=== PATIENT | female | born 1955 | race Caucasian/White ===

== ENCOUNTER → 2020-05-22 | Outpatient (CLI) | payer BC ==
[2014-09-30 14:13] VITALS: BP 156/84
[~2020-05-22] MED LIST: AMLO5TAB10 PO; ARIP2TAB3 PO; CLON0.2T PO; CLONAZEPAM1 MG PO; DEXT20TA2 PO; EZET10TA20 PO; FLUT9.9S NS; OMEP40CA45 PO
--- NOTE | 2020-05-22 17:06 | RAD ---
EXAM: PET/CT SKULL BASE TO MID THIGH. HISTORY: Follicular lymphoma COMPARISON: None. TECHNIQUE: CT was performed from the skull base through the mid thighs for the purposes of attenuation correction. 15.3 mCi F-18 fluorodeoxyglucose (FDG) was administered intravenously. After an uptake period, positron emission tomography was performed from the skull base through the mid thighs. The PET and CT data were fused and interpreted in combination a dedicated workstation. Blood glucose level was 92 mg/dL at the time of FDG administration. FINDINGS: There are no hypermetabolic or enlarged lymph nodes throughout the body. No abnormal uptake is identified throughout. The spleen is not enlarged. A 9 mm nodule in the left lower lobe demonstrates no detectable uptake, favoring benignity. Additional CT findings include aortic valve calcifications. A benign cyst in the right hepatic lobe measures 2 cm. The uterus is surgically absent. There is mild to moderate centrilobular emphysema in the apices. Few calcified granulomas are noted. An uncalcified nodule in the right lower lobe on image 99 measures 5 mm. There is an air-fluid level in the left maxillary sinus, superimposed on mucosal thickening. There is a mucous retention cyst in the right maxillary sinus. Changes of cervical fusion are noted. IMPRESSION: 1. No hypermetabolic or enlarged lymph nodes throughout. No evidence of active disease. Correlate for the site of concern. 2. A 9 mm left lower lobe nodule demonstrates no abnormal uptake and is likely benign. CT follow-up is recommended in 3-6 months if long-term stability is not already known. 3. Aortic valve calcifications. Correlate for aortic stenosis. 4. Acute on chronic left maxillary sinus disease.
== END | disposition home or self-care (01) ==
LOC: PETSC 11:00
PROVIDERS: ATTEND Internal Medicine Hematology & Oncology
DX: C82.09 Follicular lymphoma grade I, extranodal and solid organ sites (principal); I35.8 Other nonrheumatic aortic valve disorders; K76.89 Other specified diseases of liver; J43.2 Centrilobular emphysema; R91.1 Solitary pulmonary nodule; J34.1 Cyst and mucocele of nose and nasal sinus; M43.22 Fusion of spine, cervical region; J01.00 Acute maxillary sinusitis, unspecified; J34.89 Other specified disorders of nose and nasal sinuses; Z90.710 Acquired absence of both cervix and uterus
CPT/HCPCS: 78815; A9552

== ENCOUNTER 2020-05-29 08:34 | Outpatient (CLI) | payer BC ==
[~2020-05-29] VITALS: Ht 165.1 cm; Wt 62.6 kg
[2020-05-29] VITALS (10 sets, daily range): BP systolic 114–155; BP diastolic 52–68
[2020-05-29 09:12] LABS: BASO # 0.1 x10^3/uL (0.0-0.2); BASO % 1 % (0-3); EOS # 0.2 x10^3/uL (0.0-0.7); EOS % 2 % (0-3); HEMATOCRIT 45.5 % (36.0-47.0); HEMOGLOBIN 15.9 g/dL (12.0-15.5); LYMPH # 2.5 x10^3/uL (1.0-4.8); LYMPH % 25 % (24-48); MEAN CORPUSCULAR HEMOGLOBIN 32 pg (25-35); MEAN CORPUSCULAR HGB CONC 35 g/dL (31-37); MEAN CORPUSCULAR VOLUME 92 fL (79-100); MONO # 0.7 x10^3/uL (0.0-1.1); MONO % 7 % (0-9); NEUT # 6.7 x10^3/uL (1.8-7.7); NEUT % 66 % (31-73); PLATELET COUNT 247 x10^3/uL (140-400); RED BLOOD COUNT 4.92 x10^6/uL (3.50-5.40); RED CELL DISTRIBUTION WIDTH 13.4 % (11.5-14.5); WHITE BLOOD COUNT 10.2 x10^3/uL (4.0-11.0)
[2020-05-29] MEDS ORDERED: EZET10TA20 PO (09:13)
[2020-05-29] MEDS ORDERED: CLON0.2T PO (09:13)
[2020-05-29] MEDS ORDERED: OMEP40CA45 PO (09:13)
[2020-05-29] MEDS ORDERED: AMLO5TAB10 PO (09:13)
[2020-05-29] MEDS ORDERED: ARIP2TAB3 PO (09:13)
[2020-05-29] MEDS ORDERED: CLONAZEPAM1 MG PO (09:13)
[2020-05-29] MEDS ORDERED: FLUT9.9S NS (09:13)
[2020-05-29] MEDS ORDERED: DEXT20TA2 PO (09:13)
[2020-05-29 09:21] LABS: PROTHROMBIN TIME PATIENT 13.2 SEC (11.7-14.0)
[2020-05-29] MEDS ORDERED: LIDOCAINE WITH 8.4% SOD BICARB 3 ML DISP.SYRIN. ONE (09:34)
[2020-05-29] MEDS ORDERED: MIDAZOLAM HCL/PF 2 MG/2 ML VIAL. ONE (09:58)
[2020-05-29] MEDS ORDERED: fentaNYL PF VIAL 100 MCG/2 ML VIAL ONE (09:58)
[2020-05-29] MEDS ORDERED: LIDOCAINE WITH 8.4% SOD BICARB 3 ML DISP.SYRIN. IJ ONE (10:15)
[2020-05-29] MEDS ORDERED: MIDAZOLAM HCL/PF 2 MG/2 ML VIAL. IV ONE (10:15)
[2020-05-29] MEDS ORDERED: fentaNYL PF VIAL 100 MCG/2 ML VIAL IV ONE (10:15)
--- NOTE | 2020-05-29 11:45 | NUR ---
Discharge Note: SANTOSH DIAZ Discharge instructions and discharge home medications reviewed with Patient and a copy given. All questions have been answered and understanding verbalized. The following instructions and handouts were given: post bone marrow biopsy,adult moderate sedation Discontinued lines and drains: Peripheral IV intact. Patient discharged to Home or Self Care withSpousevia Wheelchair
--- NOTE | 2020-05-29 15:22 | RAD ---
CT-guided bone marrow biopsy. 05/29/2020 1:18 PM Indication: FOLLICULAR LYMPHOMA OF COLON Discussion: The risks and benefits of the procedure, including but not limited to, bleeding and infection were discussed patient. Informed consent was obtained. The patient was brought to the CT scanner and placed in the prone position. A timeout procedure was performed. Bi Manager CT imaging of the pelvis demonstrated left ilium amenable to bone marrow biopsy. The overlying soft tissues were prepped and draped using maximum sterile barrier technique. 1% lidocaine without epinephrine was administered for local anesthesia. Under intermittent CT guidance, an OncControl needle was advanced into the bone marrow of the left iliac crest. 2 Aspirates and 1 core biopsy samples were obtained. Samples were delivered to pathology was present at the time of procedure. The needle was removed and manual pressure held to achieve hemostasis. No immediate complications were identified. The procedure was performed under conscious sedation including continuous cardiopulmonary monitoring via dedicated sedation nurse. Sedation time: 15 minutes Impression: Successful CT-guided bone marrow biopsy of the left iliac crest . PQRS Compliance Statement: One or more of the following individualized dose reduction techniques were utilized for this examination: 1. Automated exposure control 2. Adjustment of the mA and/or kV according to patient size 3. Use of iterative reconstruction technique
--- NOTE | 2020-06-04 17:07 | PATHOLOGY ---
[facility] Accession Number: [id number] . 01 Material submitted: . PART A: bone - BONE MARROW BIOPSY PART B: bone - BONE MARROW CLOT PART C: bone - BONE MARROW ASPIRATE SLIDE PART D: body - PERIPHERAL BONE MARROW SMEAR PART E: bone - BONE MARROW FLOW . 01 Clinical history: . 65-year-old woman with follicular lymphoma. This is a staging marrow. . 02 Diagnosis: Bone marrow aspirate, biopsy, cell clot and peripheral blood: - Peripheral blood with no diagnostic abnormalities. - Normocellular to mildly hypercellular bone marrow with trilineage hematopoiesis, mild erythroid hyperplasia, mild (no significant) dyspoiesis and no evidence of lymphoma or acute leukemia. (See comment) (CLW/db; 06/03/2020) [facility] 06/03/2020 1654 Local . 02 Comment: Overall, the bone marrow is normocellular to mildly hypercellular for the patient's age with trilineage hematopoiesis, mild erythroid hyperplasia, mild (no significant) dyspoiesis and no evidence of the patient's previously diagnosed follicular lymphoma (diagnosed elsewhere) or acute leukemia. The dyspoiesis is mild and does not meet the morphologic criteria for myelodysplasia. Correlation with clinical history, additional laboratory data and cytogenetics is recommended. (CLW/db; 06/03/2020) . 02 Electronically signed: . Steph Saunders MD, Pathologist NPI- [id number] . 01 Gross description: . A. The specimen is received in formalin, labeled "Ginette Elizondo, BM BX". Received is a single needle core of light wheatley bone measuring 1.6 cm in length by 0.3 cm in diameter. Additionally received is a blood clot measuring 1.3 x 0.6 x 0.2 cm in aggregate. The specimen is submitted entirely in cassette A1, following light decalcification. . B. The specimen is received in formalin, labeled "Ginette Elizondo, BM asp clot". Received is blood coagulum measuring 2.7 x 1.9 x 0.3 cm in aggregate dimensions. The specimen is filtered and entirely submitted in cassette B1 ([facility]; 05/29/2020) JFQ/JFQ 05/29/2020 1735 Local . 02 Microscopic: . CBC Data (05/29/20): WBC 10,200 /uL, RBC 4.92, hemoglobin 15.9 g/dL, hematocrit 45.5%, MCV 92 fL, MCH 32 pg, MCHC 35 g/dL, RDW 13.4%, and platelet count 247,000 /uL. White blood cell differential: segs 66%, lymphs 25%, monos 7%, eos 2%, and basos 1%. . Peripheral Blood Smear: No peripheral blood smear submitted. . Aspirate Smears: Cytomorphological examination of the Stapleton's stained aspirate smears show spicules present. The overall cellularity is approximately 50%. The myeloid to erythroid ratio is 2:1. Myeloid maturation is without significant dyspoiesis. Erythroid maturation is mildly dyserythropoietic with irregular nuclear contours. In a 500 cell differential, there are 2% blasts (no Janis rods are seen), 57% more differentiated myeloids, 27% erythroid precursors, 13% lymphocytes and 1% plasma cells. Megakaryocytes are proportional in number and both normal and abnormal in morphology with variable sizes and nuclear abnormalities. No lymphoid aggregates or markedly atypical lymphoid cells are seen. Plasma cells are without atypia. Iron stain of the aspirate smear shows 2/4+ iron positivity with spicules present. No ringed sideroblasts are identified. . Core Biopsy and Cell Clot: The decalcified bone marrow core biopsy is adequate. The bone marrow is mildly hypercellular with an overall cellularity of 50-60%. The myeloid to erythroid ratio is 1-2:1. Myeloid maturation is without significant dyspoiesis. Erythroid maturation is mildly dyserythropoietic. Megakaryocytes are normal in number and both normal and abnormal in morphology. No lymphoid aggregates or markedly atypical lymphoid cells are seen. Bony trabeculae and blood vessels are unremarkable. The cell clot has spicules present that are similar in cellularity and differential morphology as previously described. . Properly controlled special stains are performed. . Block A1: Iron - 1/4+ iron positivity; Reticulin - No significant reticulin fibrosis. . Block B1: Iron - 1/4+ iron positivity with spicules present. . Due to the patient's history of lymphoma, to confirm the flow cytometry findings and to identify cells in a tissue architectural context, properly controlled immunohistochemical stains are performed. . Block A1: CD20 - Stains scattered small B-cells, no aggregates present; PAX5 - Stains scattered small B-cells, no aggregates present; CD3 - Stains admixed T-cells. . Block B1: CD20 - Stains scattered small B-cells, no aggregates present; PAX5 - Stains scattered small B-cells, no aggregates present; CD3 - Stains admixed T-cells. . Flow Cytometry: Flow cytometric immunophenotypic analysis was performed at [facility]. The diagnosis is "no immunophenotypic evidence for non-Hodgkin lymphoma detected." There are 10.8% lymphocytes. Of the lymphocytes, there are 74% T-cells with a CD4/CD8 ratio of 2.7 and no aberrant T-cell antigen expression and 19% polyclonal mature B-cells (kappa lambda ratio of 1.5). There are 0.8% CD34 positive cells (blasts) and 1.0% precursor B-cells. Please see separate flow cytometry report from [facility] ([id number]). . Cytogenetics: Cytogenetic chromosomal analysis is pending at [facility] ([id number]). (CLW/db; 06/03/2020) . 02 Pathologist provided ICD-10: D75.89 . 02 CPT . 914298, 237984, 442297, 618693, 224137, 694983, 533821, 887395, [id number], [id number] Specimen Comment: A courtesy copy of this report has been sent to [phone], [phone] Specimen Comment: [phone], Specimen Comment: Report sent to ,DR GARCIA / DR CHACON Specimen Comment: A duplicate report has been generated due to demographic updates. Performed at: [address] [place] [address] [address], [place], [place] [id number] MD Juan Luis Arreola MD Phone: [phone] Performed at: [address] [id number] MD Jelani Lara MD Phone: [phone]
== END 2020-05-29 11:45 | disposition home or self-care (01) ==
LOC: INTRAD 08:34
PROVIDERS: ATTEND Internal Medicine Hematology & Oncology
DX: C82.93 Follicular lymphoma, unspecified, intra-abdominal lymph nodes (principal); Z79.01 Long term (current) use of anticoagulants
CPT/HCPCS: 36415; 38222; 85025; 85610; 85730; 88184; 88185; 88237; 88305; 88311; 88313; 88341; 88342; 99152; J2250; J3010; J3490

== ENCOUNTER → 2020-08-21 | Outpatient (CLI) | payer BC ==
[2020-05-29 11:25] VITALS: BP 118/60
--- NOTE | 2020-08-21 15:02 | RAD ---
CT CHEST WO CONTRAST Indication: Follicular lymphoma, lung nodule Technique: Noncontrast CT imaging was performed of the chest, multiplanar reconstruction images submitted. One or more of the following individualized dose reduction techniques were utilized for this examination: 1. Automated exposure control 2. Adjustment of the mA and/or kV according to patient size 3. Use of iterative reconstruction technique. Comparison: May 22, 2020 PET/CT Findings: 0.7 cm left lower lobe pulmonary nodule is 43 series 2 is stable to slightly less prominent. 0.4 cm right lower lobe nodule image 33 series 2 is unchanged. There is no new suspicious pulmonary nodularity, infiltrate, pleural or pericardial fluid, or pneumothorax. Thoracic aortic caliber is within normal limits, scattered plaque present. There are again some aortic valvular calcifications. No new significantly enlarged nodes are identified of the chest. There is again hypodense lesion of the posterior right lobe of the liver about 1.6 cm, density measurements suggestive of a cyst. There is cervical fusion hardware, not fully included. IMPRESSION: 1. There are stable small pulmonary nodules, largest of the left lower lobe 0.7 cm. There is no new pulmonary nodularity or chest lymphadenopathy. 18-24 month follow-up is recommended as per revised Fleischner guidelines. Electronically signed by: Ankur Domingo MD (08/21/2020 2:59 PM) [facility]ITAL[facility]ope[facility]
== END ==
LOC: CT 12:55
PROVIDERS: ATTEND Internal Medicine Hematology & Oncology
DX: C82.09 Follicular lymphoma grade I, extranodal and solid organ sites (principal); R91.1 Solitary pulmonary nodule
CPT/HCPCS: 71250

== ENCOUNTER → 2021-08-27 | Outpatient (CLI) | payer BC, OTHER ==
[2020-05-29 11:25] VITALS: BP 118/60
[~2021-08-27] MED LIST changes: +AMLO-186 PO; -AMLO5TAB10 PO; -OMEP40CA45 PO; +OMEP40CA7 PO
--- NOTE | 2021-08-27 11:13 | KCIC ---
EXAM: CT CORONARY CALCIUM SCORING. HISTORY: Coronary risk factors. Calcium scoring is requested. Hyperlipidemia. COMPARISON: 08/21/2020. FINDINGS: Limited noncontrast CT of the chest was performed for coronary calcium scoring. Refer to e worksheets for full detail. *One or more of the following individualized dose reduction techniques were utilized for this examination: 1. Automated exposure control. 2. Adjustment of the mA and/or kV according to patient size. 3. Use of iterative reconstruction technique. Coronary calcium scoring is as follows: LMA: 41.6. LAD: 0.1. LCX: 0. RCA: 0. PDA: 0. Total: 41.8. The included portions of the chest reveal the following. Bone windows reveal no suspicious lesions. I mages of the upper abdomen reveal a benign cyst in the right hepatic lobe measuring 1.8 cm. There are no pathologically enlarged mediastinal lymph nodes. There is no pleural or pericardial effu clyde. The heart is not enlarged. There are calcifications of the aortic valve. An uncalcified nodule in the left lower lobe on image 32 measures 6 x 6 mm. Another in the right lowe r lobe on image 14 measures 4 mm. Both are stable and likely benign. IMPRESSION: 1. Coronary calcium score 41.8. 2. Aortic valve calcifications. Correlate for aortic stenosis. 3. Lung nodules measure up to 6 mm. These have been stable for one year and are most likely benign. A nother follow-up could be considered in one year if there are strong risk factors. Electronically signed by: Christos Rendon MD (08/27/2021 11:11 AM) [id number]
== END ==
LOC: KCIC CT 08:18
PROVIDERS: ATTEND Nurse Practitioner Family
DX: I35.8 Other nonrheumatic aortic valve disorders (principal); E78.2 Mixed hyperlipidemia; I70.0 Atherosclerosis of aorta; R91.8 Other nonspecific abnormal finding of lung field
CPT/HCPCS: 75571